=== PATIENT | female | born 1960 | race Caucasian/White ===

== ENCOUNTER 2016-07-09 14:37 | Emergency (ER) | payer MEDICAID ==
[~2016-07-09] VITALS: Ht 157.5 cm; Wt 78.0 kg
[~2016-07-09 14:37] MED LIST: ASPI-799; [UNRECOGNIZED DRUG - REMARK]; insulin
[2016-07-09 14:42] VITALS: Ht 157.5 cm; Wt 78.0 kg
[2016-07-09] MEDS ORDERED: ELIM TOP (16:25)
[2016-07-09] MEDS ORDERED: HC30CR25 TOP (16:25)
[2016-07-09] MEDS ORDERED: CETI-240 PO (16:25)
--- NOTE | 2016-07-09 16:29 | ERD ---
ER Documentation Chief Complaint Date/Time DATE: 07/09/16 TIME: 16:27 Chief Complaint rash both legs intermittent x 3 mos HPI This 55-year-old female presents with rash which is been intermittent for last 3 months. Is on his lower extremities and her upper neck. She denies any rashes on the hands or feet. She does have a roommate who had a rash on the hands. She is concerned about some standing water in her house which denies any shortness of breath, fever wheezing. ROS All systems reviewed and are negative except as per history of present illness. Medications Home Meds Active Scripts Cetirizine Hcl* (Cetirizine Hcl*) 10 Mg Tablet, 10 MG PO DAILY, #30 TAB Prov:CONNIE HILLMAN MD 07/09/16 Permethrin* (Elimite*) 5% Cr, 1 APPLIC TOP ONCE for 1 Day, TUB Apply at night to entire body. Avoid eyes and mouth. Wash off in morning. Prov:CONNIE HILLMAN MD 07/09/16 Hydrocortisone* Topical (Hydrocortisone* Topical) 2.5%-28.3 Gm Cream..g., 1 APPLIC TOP BID for 10 Days, #1 TUB Prov:CONNIE HILLMAN MD 07/09/16 Reported Medications [unk bp med] No Conflict Check 04/11/10 Aspirin/Calcium Carbonate/Mag (Aspir-Mox 325 Mg Tablet) 325 Mg Tablet 04/11/10 [insulin] No Conflict Check 04/11/10 Allergies Allergies: Coded Allergies: Acetaminophen (Verified Allergy, Severe, rash, 04/11/10) Hydrocodone (Verified Allergy, Severe, rash, 04/11/10) Sulfamethoxazole (Verified Allergy, Severe, rash, 04/11/10) Trimethoprim (Verified Allergy, Severe, rash, 04/11/10) PMhx/Soc History of Surgery: Yes (c/s, kidneystone surgery twice) Hx Neurological Disorder: No Hx Respiratory Disorders: No Hx Cardiac Disorders: Yes (htn) Hx Alcohol Use: No Hx Substance Use: No Hx Tobacco Use: No Physical Exam Vitals Vital Signs Date Time Temp Pulse Resp B/P Pulse Ox O2 Delivery O2 Flow Rate FiO2 07/09/16 14:42 98.1 70 18 150/78 99 Physical Exam Const: [] Alert, [id number]. Head: Atraumatic Eyes: Normal Conjunctiva ENT: Normal External Ears, Nose and Mouth. Neck: Full range of motion..~ No meningismus. Resp: Clear to auscultation bilaterally Cardio: Regular rate and rhythm, no murmurs Abd: Soft, non tender, non distended. Normal bowel sounds Skin: No petechiae or purpura. There is a scant sorted mild rash on the bilateral ankles and shins. There is slight area on the back of the neck as well. Back: No midline or flank tenderness Ext: No cyanosis, or edema Neur: Awake and alert Psych: Normal Mood and Affect Procedures/MDM This patient presents with a rash of uncertain etiology for last 2 months. So evidence of any life-threatening rashes, emergent contagious diseases or purpura. She does give history of a roommate who has a rash on her hands. Given this history she will be treated empirically for scabies although she likely has some nonspecific contact dermatitis unspecified allergic rash. She will be treated with permethrin, hydrocortisone Zyrtec and instructions to follow-up with primary care doctor. There is no evidence of anaphylaxis or cellulitis. The patient was stable with no new complaints during the ER course. Clinically, there is no current evidence to suggest meningitis, sepsis, acute abdomen, pneumonia, acute coronary syndrome, pulmonary embolism, or any other emergent condition appearing to require further evaluation or hospitalization. The patient should certainly return for any new or worsening symptoms per the aftercare instructions. They should otherwise follow-up with her primary care doctor for reevaluation this week. Departure Diagnosis: Primary Impression: Rash Condition: Stable Patient Instructions: Dermatitis, Non-Specific, Scabies Additional Instructions: We will treat for scabies although possibly allergic rash. Recheck with primary care doctor or return for fevers, shortness breath, new symptoms. CONNIE HILLMAN MD Jul 09, 2016 16:29
[2016-07-09 16:48] VITALS: BP 149/62; PULSE 78; RESP 19; TEMP 98.2
== END 2016-07-09 16:47 | disposition home or self-care (01) ==
LOC: FTE 14:37
DX: R21 Rash and other nonspecific skin eruption (principal); I10 Essential (primary) hypertension; E11.9 Type 2 diabetes mellitus without complications; Z79.82 Long term (current) use of aspirin; Z79.4 Long term (current) use of insulin
CPT/HCPCS: 99283